=== PATIENT | male | born 1980 | race Two or more races ===

== ENCOUNTER 2021-03-18 17:27 | Inpatient (IN) | payer MEDICARE, MEDICAID ==
[~2021-03-18] VITALS: Ht 152.4 cm; Wt 57.6 kg
--- NOTE | 2021-03-18 18:52 | NUR ---
RT NOTE PT BROUGHT IN FOR DIALYSIS CATH REPLACEMENT FROM [facility]. PT IS TRACH'D VIA PORTEX 7 CUFFED AND PLACED ON [facility] VENT W GIVEN SETTINGS FROM TRANSPORT RT RAJAN. PT IS STABLE. ALARMS ARE SET AND AUDIBLE. SPARE OFELIA AND ISABEL @ [facility]. VENT IS PLUGGED INTO RED OUTLET. Addendum: 03/18/21 at 1931 by ANJANA MARRUFO RT Amended: Links added.
--- NOTE | 2021-03-18 19:05 | NUR ---
IV LINE IS ESTABLISHED, BLOOD SPECIMEN COLLECTED AND SENT TO THE LAB. THE LINE IS SALINE LOCKED.
[2021-03-18 19:17] LABS: BASOPHILS # (AUTO) 0.1 K/uL (0.0-0.2); BASOPHILS % (AUTO) 0.5 % (0.0-2.0); HEMATOCRIT 31 % (39-51); HEMOGLOBIN 10.7 g/dL (13.5-17.5); LYMPHOCYTES # (AUTO) 2.3 K/uL (0.8-4.8); LYMPHOCYTES % (AUTO) 17.3 % (20.0-44.0); MEAN CORPUSCULAR HGB CONC 34 g/dl (31.0-36.0); MEAN CORPUSCULAR VOLUME 86 fL (80-96); MONOCYTES # (AUTO) 0.4 K/uL (0.1-1.30); MONOCYTES % (AUTO) 3.3 % (2.0-12.0); NEUTROPHILS # (AUTO) 9.7 K/uL (1.8-8.9); NEUTROPHILS % (AUTO) 73.9 % (43.0-81.0); PLATELET COUNT (AUTO) 457 K/uL (150-450); RED BLOOD CELL COUNT(AUTO) 3.67 MIL/uL (4.5-6.0); WHITE BLOOD COUNT (AUTO) 13.1 K/uL (4.3-11.0)
--- NOTE | 2021-03-18 19:37 | NUR ---
MOVE SHEET SUBMITTED AND CALLED FOR TELE BED.
[2021-03-18 19:40] LABS: CALCIUM, SERUM 8.8 mg/dL (8.5-10.1); CARBON DIOXIDE 25 mmol/L (21-32); CHLORIDE 90 mmol/L (98-107); CREATININE 6.4 mg/dL (0.6-1.3); GLUCOSE 177 mg/dL (74-106); POTASSIUM 4.7 mmol/L (3.5-5.1); SODIUM SERUM 131 mmol/L (136-145)
[2021-03-18 19:45] LABS: UREA NITROGEN, BLOOD 107 mg/dL (7-18)
--- NOTE | 2021-03-18 19:45 | NUR ---
BUN 107
[2021-03-18 19:51] LABS: ALANINE AMINOTRANSFERASE 21 U/L (12-78); ALKALINE PHOSPHATASE 346 U/L (46-116); ASPARTATE AMINOTRANSFERASE 35 U/L (15-37); BILIRUBIN,DIRECT 0.1 mg/dL (0.0-0.2); BILIRUBIN,TOTAL 0.3 mg/dL (0.2-1.0); LIPASE 309 U/L (73-393); TOTAL PROTEIN, SERUM 8.8 g/dL (6.4-8.2)
--- NOTE | 2021-03-18 19:59 | NUR ---
MRSA SWAB COLLECTED AND SENT TO LAB. PATIENT'S BELONGINGS LIST DONE.
[2021-03-18] MEDS ORDERED: ONDANSETRON HCL/PF 4 MG/2 ML VIAL IVP PRN (20:00)
[2021-03-18] MEDS ORDERED: ACETAMINOPHEN 650 MG/SUPP.RECT RC PRN (20:00)
[2021-03-18] MEDS ORDERED: HYDROCODONE/APAP 10/325MG TABLET PO PRN (20:00)
--- NOTE | 2021-03-18 20:16 | NUR ---
COVID SWAB COLLECTED AND SENT TO LAB
--- NOTE | 2021-03-18 22:25 | NUR ---
REPORT GIVEN TO ISABELLA BLACKWOOD
[2021-03-18 22:53] VITALS: BP 180/98
--- NOTE | 2021-03-18 22:53 | NUR ---
PT WS TRANSFERRED TO 117 UNDER ACLS
--- NOTE | 2021-03-18 22:55 | NUR ---
TRAINING FACILITATOR NOTE RECEIVED PATIENT VIA GURNEY. TRANSFERED TO BED WITH NO INJURIES. RT CONNECTED TO VENT. PORTX #7, AC 22, TV 500 FIO2 30% AND PEEP 5. NO RESP DISTRESS. NO C/O PAIN AT THIS TIME. PATIENT IS REQUESTING BENADRYL INFORMED HIM I WILL SEE WHAT THE DOCTOR ORDERED. TELE MONITOR APPLIED, READS SINUS RHTYHM 84. IN NO APPARENT DISTRESS. IV ACCESS IN NARCISA MIDLINE PATENT AND SALINE LOCKED. BRIGHT HAND#20 PATENT AND SALINE LOCKED. AND LEFT CHEST WALL HD CATH. GTUBE IS PRESENT, NO RESIDUAL, LUSHED WITH NO RESISTANCE, CLAMPED AT THIS TIME. INTIAL PHYSICAL ASSESSMENT DONE AT THIS TIME, SKIN ASSESSMENT COMPLETED, PHOTOS TAKEN AND PLACED IN CHART. VAMP CREASER OBTAINED VITAL SIGNS AND BELONGINGS SHEET. BED IS LOW AND LOCKED, HOB ELEVATED IN SEMI FOWLERS, SIDE RIALS UP X2, CALL LIGHT WEHLIN REACH.
--- NOTE | 2021-03-19 00:16 | NUR ---
RN NOTE INFORMED DECONTAMINATOR MIKIE TRIPP DIRECTOR AMBULATORY THAT PATIENT BP IS 180/98, 160S/101. RECEIVED VERBAL ORDER FOR HYDRALAZINE 10MG IV PUSH ONE TIME. ORDER READ BACK NOTED AND CARRIED OUT. ALSO INFORMED HER THAT PATIENT IS REQUESTING BENADRYL, WILL ENTER MED RECON AND INFORM HER WHEN ENTERED FOR REVIEW.
[2021-03-19] MEDS ORDERED: hydrALAZINE HCL IV 20 MG VIAL IV ONE (00:30)
[2021-03-19] MEDS ORDERED: VIT1TABL46 GT (02:08)
[2021-03-19] MEDS ORDERED: METO-295 GT (02:08)
[2021-03-19] MEDS ORDERED: ESCI10TA GT (02:08)
[2021-03-19] MEDS ORDERED: MIDO10TA GT ×2 (02:08→08:00)
[2021-03-19] MEDS ORDERED: SEVE0.8P GT (02:08)
[2021-03-19] MEDS ORDERED: LANS30CA56 GT (02:08)
[2021-03-19] MEDS ORDERED: AMLO-213 GT (02:08)
[2021-03-19] MEDS ORDERED: LOSA50TA3 GT (02:08)
[2021-03-19] MEDS ORDERED: CLON1PAT13 TD (02:08)
[2021-03-19] MEDS ORDERED: SIME80TA15 GT (02:08)
[2021-03-19] MEDS ORDERED: HYDR100T27 GT (02:08)
[2021-03-19] MEDS ORDERED: ERYT200S16 GT (02:08)
[2021-03-19] MEDS ORDERED: ASPI-1498 GT (02:08)
[2021-03-19] MEDS ORDERED: BISA10SU11 RC (02:08)
[2021-03-19] MEDS ORDERED: IPRA3AMP22 IH (02:08)
[2021-03-19] MEDS ORDERED: INSU100I45 SQ (02:08)
[2021-03-19] MEDS ORDERED: GABA-532 GT (02:08)
[2021-03-19] MEDS ORDERED: INSU100V42 (02:08)
[2021-03-19] MEDS ORDERED: INSU100V7 SQ (02:08)
[2021-03-19] MEDS ORDERED: HEPA500039 SQ (02:08)
[2021-03-19] MEDS ORDERED: METO50TA16 GT (02:08)
[2021-03-19] MEDS ORDERED: HYDR4TAB57 GT (02:08)
[2021-03-19] MEDS ORDERED: Medication Not On Formulary EA (Ipratropium/Albuterol Sulfate (Ipratr-Albuterol 0.5-3 Mg IH SCH (02:30)
[2021-03-19] MEDS ORDERED: SIMETHICONE 80 MG TAB.CHEW GT PRN (02:30)
[2021-03-19] MEDS ORDERED: DEXTROSE 50%-WATER 50 ML DISP.SYRIN IV PRN (02:30)
[2021-03-19] MEDS ORDERED: BISACODYL SUPP (10 MG) 10 MG/SUPP.RECT SUPP.RECT RC PRN ×2 (02:30→03:30)
[2021-03-19] MEDS ORDERED: ALBUTEROL FS 2.5 MG/0.5 ML VIAL.NEB NEB PRN (03:00)
[2021-03-19] MEDS ORDERED: MIDODRINE HCL (5MG) 5 MG TABLET GT SCH (03:00)
[2021-03-19] MEDS ORDERED: HYDROMORPHONE HCL 2 MG TABLET GT PRN (03:00)
[2021-03-19] MEDS ORDERED: METOCLOPRAMIDE HCL 10 MG/10 ML UDC GT PRN (03:00)
[2021-03-19] MEDS ORDERED: IPRATROPIUM NEB FS 0.5 MG/2.5 ML AMPUL.NEB IH PRN (03:00)
[2021-03-19] MEDS: INSULIN NPH, HUMAN ISOPHANE 100 UNIT/ML VIAL SQ SCH ×2 (03:00→14:35)
[2021-03-19] MEDS ORDERED: MIDODRINE HCL (5MG) 5 MG TABLET GT PRN (03:30)
[2021-03-19 04:00] VITALS: BP 159/80
[2021-03-19] MEDS: BLOOD SUGAR DIAGNOSTIC 1 EACH STRIP IN SCH ×4 (07:03→23:05)
[2021-03-19] MEDS: INSULIN REGULAR, HUMAN 100 UNIT/ML 3 ML VIAL SQ PRN ×3 (07:04→16:53)
[2021-03-19 07:06] LABS: BASOPHILS # (AUTO) 0.1 K/uL (0.0-0.2); BASOPHILS % (AUTO) 1.1 % (0.0-2.0); EOSINOPHILS % (AUTO) 4.5 % (0.0-6.0); HEMATOCRIT 32 % (39-51); HEMOGLOBIN 10.7 g/dL (13.5-17.5); LYMPHOCYTES # (AUTO) 2.3 K/uL (0.8-4.8); LYMPHOCYTES % (AUTO) 22.4 % (20.0-44.0); MEAN CORPUSCULAR HGB CONC 34 g/dl (31.0-36.0); MEAN CORPUSCULAR VOLUME 87 fL (80-96); MONOCYTES # (AUTO) 0.6 K/uL (0.1-1.30); MONOCYTES % (AUTO) 6.2 % (2.0-12.0); NEUTROPHILS # (AUTO) 6.7 K/uL (1.8-8.9); NEUTROPHILS % (AUTO) 65.8 % (43.0-81.0); PLATELET COUNT (AUTO) 393 K/uL (150-450); RED BLOOD CELL COUNT(AUTO) 3.65 MIL/uL (4.5-6.0); WHITE BLOOD COUNT (AUTO) 10.2 K/uL (4.3-11.0)
[2021-03-19 07:41] LABS: CREATININE 6.7 mg/dL (0.6-1.3); MAGNESIUM 3.5 mg/dL (1.8-2.4); POTASSIUM 4.6 mmol/L (3.5-5.1)
--- NOTE | 2021-03-19 07:46 | NUR ---
RN CLOSING NOTE RESTING IN BED. ON VENT. NO RESP DISTRES. NO C/O MANUELA. NO DISTRESS. IV ACCESS MAINTAINED.GTUBE IS CLAMPED. ASKED MIKIE QASIM THIS MORNING IF SHE WOULD LIKE TO CONTINUE NEPRO FEEDING FROM [facility]. RECEIVED ORDER FOR NPO. BED REMAINS LOW AND LOCKED, HOB ELEVATED IN SEMI FOWLERS, SIDE RIALS UP X2, CALL LIGHT WEHLIN REACH. WILL ENDORSE TO ONCOMING SHIFT.
--- NOTE | 2021-03-19 07:59 | NUR ---
FELLER HAND NOTE PATIENT IN BED, AWAKE ALERT, WITH TRACH TO VENT SETTING ORDERED, ON TELE MONITOR SR HR 85 , ON NPO AT THIS TIME, NARCISA MID LINE IN PLACE , WILL CONT TO MONITOR
[2021-03-19] MEDS ORDERED: CHLO473M5 MM (08:00)
[2021-03-19] MEDS ORDERED: INSU100V11 SQ (08:00)
[2021-03-19] MEDS ORDERED: SILV480G TP (08:00)
[2021-03-19] MEDS ORDERED: NUT.237L67 GT (08:00)
[2021-03-19] MEDS ORDERED: GLUC1KIT IM (08:00)
[2021-03-19] MEDS ORDERED: POVI3780 TP (08:00)
[2021-03-19] MEDS ORDERED: ACET650S26 GT (08:00)
[2021-03-19] MEDS ORDERED: AMIN30LI2 GT (08:00)
[2021-03-19 08:09] LABS: PHOSPHORUS 4.4 mg/dL (2.5-4.9)
[2021-03-19] MEDS: SEVELAMER CARBONATE 800 MG POWD.PACK GT SCH ×3 (08:10→16:25)
[2021-03-19] MEDS: METOPROLOL TARTRATE 50 MG TABLET GT SCH ×2 (08:10→16:35)
[2021-03-19] MEDS: ASPIRIN EC 81 MG TABLET.DR PO SCH (08:10)
[2021-03-19] MEDS: ESCITALOPRAM OXALATE (10 MG) 10 MG TABLET GT SCH (08:11)
[2021-03-19] MEDS: AMLODIPINE BESYLATE 10 MG TABLET PO SCH (08:11)
[2021-03-19] MEDS: LOSARTAN POTASSIUM 50 MG TABLET PO SCH ×2 (08:11→21:00)
[2021-03-19] MEDS: hydrALAZINE HCL 50 MG TABLET GT SCH ×3 (08:12→16:25)
[2021-03-19] MEDS: VIT B CMPLX 3/FA/VIT C/BIOTIN 1 TAB TABLET GT SCH (08:12)
[2021-03-19] MEDS: GABAPENTIN 300 MG CAPSULE GT SCH ×2 (08:12→16:25)
[2021-03-19] MEDS ORDERED: CLONIDINE HCL 0.2MG/24H PTWK 1 EA PATCH TD SCH (09:00)
--- NOTE | 2021-03-19 09:30 | NUR ---
WOUND CARE CONSULT: REVIEWED CHART, NURSING DOCUMENTATION AND PHOTOS WHICH INDICATE MULTIPLE AREAS OF SCARRING INCLUDING BILATERAL BUTTOCKS, SACRUM, HIPS ABDOMEN AND HEELS, ALL PRESENT ON ADMISSION. RASH NOTED IN ADMISSION PHOTO OF INNER THIGHS, PERINEAL AREAS. RECOMMENDATIONS MADE FOR SKIN PROTECTION. DISCUSSED WITH NURSING STAFF. MD IN AGREEMENT WITH PLAN OF CARE. Addendum: 03/19/21 at 0937 by INES DECKER WNDNU PT TO BE PLACED ON [facility] LOW AIRLOSS BED.
[2021-03-19] MEDS: PANTOPRAZOLE 40 MG/PACK PACK GT SCH ×2 (09:42→16:25)
[2021-03-19] MEDS: ERYTHROMYCIN ETHYLSUCCINATE 200 MG/5 ML SUSPENSION GT SCH ×4 (09:42→21:36)
[2021-03-19] MEDS ORDERED: Z GUARD REMEDY 2 OZ OINT TP PRN (10:00)
[2021-03-19 10:32] VITALS: BP 161/87
[2021-03-19] MEDS: Z GUARD REMEDY 2 OZ OINT TP SCH (10:54)
[2021-03-19] MEDS ORDERED: NEPRO 1,000 ML BOTTLE GT PRN (11:00)
[2021-03-19 12:36] VITALS: BP 134/61
--- NOTE | 2021-03-19 12:37 | NUR ---
telemarketing supervisor note per dr daigle ok to start g tube feeding ok to have feeding as same as from snf , order carried out
[2021-03-19] MEDS: NEPRO 1,000 ML BOTTLE GT PRN (13:11)
--- NOTE | 2021-03-19 13:23 | NUR ---
telephone coin box collector note g tube feeding started as ordered keep hob elevated at all time
--- NOTE | 2021-03-19 14:51 | NUR ---
telecommunications administrator note rounds made ,all needs attend, turn reposition, made a bm, patrice pcleamyah dry
[2021-03-19] MEDS: PROSOURCE / PROSTAT (PYXIS) 30 ML UDC GT SCH (16:26)
[2021-03-19] MEDS: CLOTRIMAZOLE 1% 15 GM TUBE TP SCH (16:26)
[2021-03-19 16:32] VITALS: BP 120/68
--- NOTE | 2021-03-19 18:22 | NUR ---
telecommunications support note patient in bed , awake with trach to vent setting as ordered , keep clean dry , on g tube feeding as ordered, keep hob elevated at all time, on tele monitor sr , bed in lowest and locked position, will cont to monitor closely
--- NOTE | 2021-03-19 19:20 | NUR ---
RN OPENING NOTES RECEIVED PATIENT ON BED, ALERT, AWAKE, RESPIRATORY EVEN AND UNLABORED, ON MECHANICAL VENT WITH SETTINGS AC-22, TV- 500, FIO2-30%, PEEP- 5, NO SOB NOTED, NO S/S OF DISTRESS NOTED, REMAIN AFEBRILE. PT. NOTED WITH NARCISA MIDLINE PATENT, INTACT AND FLUSH WITH NS, NO INFILTRATION NOTED AT SITE. . ON G TUBE FEEDING NEPHRO @40 ML/HR X 16 HRS. HOB KEPT ELEVATED, ABDOMINAL BINDER AT ALL TIMES. BED IN LOWEST POSITION, LOCKED, BED ALARM ARMED. ALL NEEDS ATTENDED. CALL LIGHT WITH IN REACH. Addendum: 03/20/21 at 0320 by ASIF BUCK RN PT. HAS LEFT UPPER CHEST PERMA CATH BUT CURRENTLY NOT WORKING.
[2021-03-19 20:00] VITALS: BP 105/59
[2021-03-19] MEDS: INSULIN GLARGINE, 100 UNIT/ML CARTRIDGE SQ SCH (22:59)
--- NOTE | 2021-03-19 23:06 | NUR ---
RN NOTES HOLD INSULIN LANTUS 16 UNITS, BLOOD SUGAR 82 mg/dL AND AND WILL STOP TUBE FEEDING POST MID NIGHT PRIOR TO PERMA CATH REINSERTION IN AM.
--- NOTE | 2021-03-19 23:30 | NUR ---
RN NOTES GTUBE FEEDING HOLD PER MD'S ORDER, PT HAS PROCEDURE IN AM, PERMA CATH REINSERTION.
[2021-03-20 00:06] VITALS: BP 135/49
[2021-03-20] MEDS: INSULIN NPH, HUMAN ISOPHANE 100 UNIT/ML VIAL SQ SCH ×2 (03:12→15:57)
[2021-03-20 04:00] VITALS: BP_SYST 123; BP_SYST 97; BP_DIAS 52; BP_DIAS 62
[2021-03-20] MEDS: BLOOD SUGAR DIAGNOSTIC 1 EACH STRIP IN SCH ×4 (05:51→23:22)
[2021-03-20] MEDS: INSULIN REGULAR, HUMAN 100 UNIT/ML 3 ML VIAL SQ PRN ×2 (05:54→17:54)
--- NOTE | 2021-03-20 06:34 | NUR ---
RN CLOSING NOTES PATIENT REMAIN STABLE THROUGH OUT THE SHIFT, RESPIRATORY EVEN AND UNLABORED, ON MECHANICAL VENT WITH SETTINGS AC-22, TV- 500, FIO2-30%, PEEP- 5, NO SOB NOTED, NO S/S OF DISTRESS NOTED, SINUS RHYTHM ON HEAD CASHIER, HR-68. REMAIN AFEBRILE. PT. NOTED WITH NARCISA MIDLINE PATENT, INTACT AND FLUSH WITH NS, NO INFILTRATION NOTED AT SITE. . ON G TUBE FEEDING NEPHRO @40 ML/HR X 16 HRS. HOB KEPT ELEVATED, ABDOMINAL BINDER AT ALL TIMES. PT. HAS LEFT UPPER CHEST PERMA CATH BUT CURRENTLY NOT WORKING. GTUBE FEEDING TURN OFF @ MID NIGHT FOR HD CATHETER REINSERTION. BED IN LOWEST POSITION, LOCKED, BED ALARM ARMED. ALL NEEDS ATTENDED. CALL LIGHT WITH IN REACH. ENDORSED TO NEXT SHIFT
[2021-03-20 06:57] LABS: CALCIUM, SERUM 9.2 mg/dL (8.5-10.1); POTASSIUM 5.3 mmol/L (3.5-5.1)
[2021-03-20 06:58] LABS: BASOPHILS # (AUTO) 0.1 K/uL (0.0-0.2); BASOPHILS % (AUTO) 1.2 % (0.0-2.0); EOSINOPHILS % (AUTO) 4.6 % (0.0-6.0); HEMATOCRIT 29 % (39-51); HEMOGLOBIN 10.1 g/dL (13.5-17.5); LYMPHOCYTES # (AUTO) 2.9 K/uL (0.8-4.8); LYMPHOCYTES % (AUTO) 27.3 % (20.0-44.0); MEAN CORPUSCULAR HGB CONC 35 g/dl (31.0-36.0); MEAN CORPUSCULAR VOLUME 86 fL (80-96); MONOCYTES # (AUTO) 0.7 K/uL (0.1-1.30); MONOCYTES % (AUTO) 6.4 % (2.0-12.0); NEUTROPHILS # (AUTO) 6.3 K/uL (1.8-8.9); NEUTROPHILS % (AUTO) 60.5 % (43.0-81.0); PLATELET COUNT (AUTO) 361 K/uL (150-450); WHITE BLOOD COUNT (AUTO) 10.5 K/uL (4.3-11.0)
[2021-03-20 07:21] LABS: CREATININE 7.7 mg/dL (0.6-1.3)
[2021-03-20] MEDS ORDERED: ANESTHESIA TRAY IN PYXIS 1 EA TRAY MC ONE (07:41)
--- NOTE | 2021-03-20 07:45 | NUR ---
RN OPEN NOTES PATIENT RECEIVED IN BED, ALERT AND ORIENTED X1 WITH NO SIGN OF RESPIRATORY DISTRESS OR SOB AT THIS TIME BREATHING EVEN AND UNLABORED, ON MECHANICAL VENT WITH SETTINGS AC-22, TV- 500, FIO2-30%, PEEP- 5, SINUS RHYTHM ON CLOTHES IRONER, HR-66. WITH NARCISA MIDLINE PATENT, INTACT AND FLUSH WELL, NO INFILTRATION NOTED, ON G TUBE FEEDING NEPHRO @40 ML/HR X 16 HRS. HOB KEPT ELEVATED, ABDOMINAL BINDER AT ALL TIMES. PT. HAS LEFT UPPER CHEST PERMA CATH BUT CURRENTLY NOT WORKING. G TUBE FEEDING TURN OFF FOR HD CATHETER REINSERTION. BED IN LOWEST POSITION AND LOCKED, BED ALARM ON, CALL LIGHT WITHIN REACH. WILL CONTINUE TO MONITOR
[2021-03-20 08:00] VITALS: BP 126/79
--- NOTE | 2021-03-20 08:00 | NUR ---
RN NOTE PT WENT UP TO THE OR FOR LEFT UPPER CHEST PERMA CATH REINSERTION
[2021-03-20] MEDS ORDERED: FENTANYL PF 100MCG/2ML AMPUL ONE (08:14)
[2021-03-20] MEDS ORDERED: LIDOCAINE HCL/MPF 1% 30 ML VIAL IJ ONE (08:19)
[2021-03-20] MEDS ORDERED: HEPARIN SODIUM, PORCINE 1,000 UNIT/ML VIAL ONE (08:21)
[2021-03-20] MEDS: AMLODIPINE BESYLATE 10 MG TABLET PO SCH (09:00)
[2021-03-20] MEDS: METOPROLOL TARTRATE 50 MG TABLET GT SCH ×2 (09:00→16:26)
[2021-03-20] MEDS: LOSARTAN POTASSIUM 50 MG TABLET PO SCH ×2 (09:00→21:21)
[2021-03-20] MEDS: hydrALAZINE HCL 50 MG TABLET GT SCH ×3 (09:00→16:26)
[2021-03-20] MEDS: ASPIRIN EC 81 MG TABLET.DR PO SCH (09:53)
[2021-03-20] MEDS: GABAPENTIN 300 MG CAPSULE GT SCH ×2 (09:53→16:26)
[2021-03-20] MEDS: PANTOPRAZOLE 40 MG/PACK PACK GT SCH ×2 (09:53→16:25)
[2021-03-20] MEDS: ESCITALOPRAM OXALATE (10 MG) 10 MG TABLET GT SCH (09:53)
[2021-03-20] MEDS: CLOTRIMAZOLE 1% 15 GM TUBE TP SCH ×2 (09:56→16:27)
[2021-03-20] MEDS: Z GUARD REMEDY 2 OZ OINT TP SCH (09:56)
[2021-03-20] MEDS: SEVELAMER CARBONATE 800 MG POWD.PACK GT SCH ×3 (09:59→16:26)
[2021-03-20] MEDS: VIT B CMPLX 3/FA/VIT C/BIOTIN 1 TAB TABLET GT SCH (10:00)
[2021-03-20] MEDS: ERYTHROMYCIN ETHYLSUCCINATE 200 MG/5 ML SUSPENSION GT SCH ×4 (10:00→21:15)
--- NOTE | 2021-03-20 10:00 | NUR ---
RN NOTES LEFT UPPER CHEST PERMA CATH REINSERTION WENT WELL PT IS IN HEMODIALYSIS NOW
[2021-03-20] MEDS: PROSOURCE / PROSTAT (PYXIS) 30 ML UDC GT SCH ×2 (10:01→16:27)
[2021-03-20] MEDS: NEPRO 1,000 ML BOTTLE GT PRN (10:24)
--- NOTE | 2021-03-20 11:49 | NUR ---
RN NOTE PT HAS ONE EMESIS ZOFRAN PRN GIVEN WILL CONTINUE TO MONITOR
[2021-03-20 12:00] VITALS: BP 134/67
--- NOTE | 2021-03-20 13:00 | NUR ---
RN NOTE DIALYSIS DONE 3L REMOVED
--- NOTE | 2021-03-20 13:12 | NUR ---
rn notes Hold hydralazine per dialysis nurse
[2021-03-20] MEDS: ANCEF 1 GM/50 ML D5W IV SCH ×2 (15:47→23:22)
[2021-03-20 16:00] VITALS: BP 182/93
--- NOTE | 2021-03-20 18:36 | NUR ---
RN CLOSING NOTES PATIENT REMAINS IN BED, ALERT AND ORIENTED X1 WITH NO SIGN OF RESPIRATORY DISTRESS OR SOB AT THIS TIME BREATHING EVEN AND UNLABORED, ON MECHANICAL VENT WITH SETTINGS AC-22, TV- 500, FIO2-30%, PEEP- 5, SINUS RHYTHM ON TELEVISION SCHEDULE COORDINATOR, HR-72 WITH NARCISA MIDLINE PATENT, INTACT AND FLUSH WELL, NO INFILTRATION NOTED, ON G TUBE FEEDING NEPHRO @40 ML/HR X 16 HRS. HOB KEPT ELEVATED, PT HAS LEFT UPPER CHEST PERMA CATH IN PLACE DIALYSIS DONE WITH 3 LITERS REMOVED, BED IN LOWEST POSITION AND LOCKED, BED ALARM ON, CALL LIGHT WITHIN REACH. WILL ENDORSE TO DIORAMA MODEL MAKERPLASTER BLOCK LAYER
[2021-03-20 20:00] VITALS: BP 137/39
[2021-03-20] MEDS: INSULIN GLARGINE, 100 UNIT/ML CARTRIDGE SQ SCH (23:21)
[2021-03-21] VITALS: BP 147/35
[2021-03-21] MEDS: INSULIN NPH, HUMAN ISOPHANE 100 UNIT/ML VIAL SQ SCH ×2 (03:00→15:08)
--- NOTE | 2021-03-21 03:00 | NUR ---
RN NOTES HOLD NOVOLIN N INSULIN FOR BLOOD SUGAR 69mg/dL
[2021-03-21 04:00] VITALS: BP 153/39
--- NOTE | 2021-03-21 04:25 | NUR ---
RN OPENING NOTES RECEIVED PATIENT ON BED, ALERT, AWAKE, RESPIRATORY EVEN AND UNLABORED, ON MECHANICAL VENT WITH SETTINGS AC-22, TV- 500, FIO2-30%, PEEP- 5, NO SOB NOTED, NO S/S OF DISTRESS NOTED, REMAIN AFEBRILE. PT. NOTED WITH NARCISA MIDLINE PATENT, INTACT AND FLUSH WITH NS, NO INFILTRATION NOTED AT SITE. . ON G TUBE FEEDING NEPHRO @40 ML/HR X 16 HRS. HOB KEPT ELEVATED, ABDOMINAL BINDER AT ALL TIMES. S/P PERMA CATH INSERTION, DENIES PAIN. WITH MINIMAL BLEEDING NOTED AT THE SITE. BED IN LOWEST POSITION, LOCKED, BED ALARM ARMED. ALL NEEDS ATTENDED. CALL LIGHT WITH IN REACH.
[2021-03-21] MEDS: BLOOD SUGAR DIAGNOSTIC 1 EACH STRIP IN SCH ×4 (06:18→23:07)
[2021-03-21 06:34] LABS: BASOPHILS # (AUTO) 0.1 K/uL (0.0-0.2); BASOPHILS % (AUTO) 0.5 % (0.0-2.0); EOSINOPHILS % (AUTO) 1.7 % (0.0-6.0); HEMATOCRIT 30 % (39-51); HEMOGLOBIN 10.4 g/dL (13.5-17.5); LYMPHOCYTES % (AUTO) 10.2 % (20.0-44.0); MEAN CORPUSCULAR HGB CONC 35 g/dl (31.0-36.0); MEAN CORPUSCULAR VOLUME 86 fL (80-96); MONOCYTES # (AUTO) 0.7 K/uL (0.1-1.30); MONOCYTES % (AUTO) 3.6 % (2.0-12.0); NEUTROPHILS # (AUTO) 16.9 K/uL (1.8-8.9); PLATELET COUNT (AUTO) 331 K/uL (150-450); RED BLOOD CELL COUNT(AUTO) 3.46 MIL/uL (4.5-6.0); WHITE BLOOD COUNT (AUTO) 20.1 K/uL (4.3-11.0)
--- NOTE | 2021-03-21 07:01 | NUR ---
RN OPENING NOTES NO SIGNIFICANT CHANGES THROUGH OUT THE SHIFT. RESPIRATORY EVEN AND UNLABORED, ON MECHANICAL VENT WITH SETTINGS AC-22, TV- 500, FIO2-30%, PEEP- 5, NO SOB NOTED, NO S/S OF DISTRESS NOTED, REMAIN AFEBRILE. PT. NOTED WITH NARCISA MIDLINE PATENT, INTACT AND FLUSH WITH NS, NO INFILTRATION NOTED AT SITE. . ON G TUBE FEEDING NEPHRO @40 ML/HR X 16 HRS. HOB KEPT ELEVATED, ABDOMINAL BINDER AT ALL TIMES. S/P PERMA CATH INSERTION, DENIES PAIN. WITH MINIMAL BLEEDING NOTED AT THE SITE. BED IN LOWEST POSITION, LOCKED, BED ALARM ARMED. ALL NEEDS ATTENDED. CALL LIGHT WITH IN REACH. ENDORSED TO NEXT SHIFT
--- NOTE | 2021-03-21 07:41 | NUR ---
RN OPEN NOTES PATIENT RECEIVED IN BED, ALERT AND ORIENTED X1 WITH NO SIGN OF RESPIRATORY DISTRESS OR SOB AT THIS TIME BREATHING EVEN AND UNLABORED, ON MECHANICAL VENT WITH SETTINGS AC-22, TV- 500, FIO2-30%, PEEP- 5, SINUS RHYTHM ON INTERIOR BLOCK WIRER, HR-65 WITH NARCISA MIDLINE PATENT, INTACT AND FLUSH WELL, NO INFILTRATION NOTED, ON G TUBE FEEDING NEPHRO @40 ML/HR X 16 HRS. HOB KEPT ELEVATED, PT HAS LEFT UPPER CHEST PERMA CATH IN PLACE WITH A LITTLE BIT OF BLOOD NOTED, WILL MONITOR CLOSELY, BED IN LOWEST POSITION AND LOCKED, BED ALARM ON, CALL LIGHT WITHIN REACH. WILL CONTINUE TO MONITOR
[2021-03-21 08:00] VITALS: BP 132/32
[2021-03-21 08:07] LABS: CALCIUM, SERUM 9.6 mg/dL (8.5-10.1); CREATININE 4.5 mg/dL (0.6-1.3); POTASSIUM 4.7 mmol/L (3.5-5.1)
[2021-03-21] MEDS: CLOTRIMAZOLE 1% 15 GM TUBE TP SCH ×2 (09:11→16:58)
[2021-03-21] MEDS: Z GUARD REMEDY 2 OZ OINT TP SCH (09:12)
[2021-03-21] MEDS: ERYTHROMYCIN ETHYLSUCCINATE 200 MG/5 ML SUSPENSION GT SCH ×4 (09:16→21:44)
[2021-03-21] MEDS: ASPIRIN EC 81 MG TABLET.DR PO SCH (09:16)
[2021-03-21] MEDS: VIT B CMPLX 3/FA/VIT C/BIOTIN 1 TAB TABLET GT SCH (09:17)
[2021-03-21] MEDS: SEVELAMER CARBONATE 800 MG POWD.PACK GT SCH ×3 (09:17→16:57)
[2021-03-21] MEDS: GABAPENTIN 300 MG CAPSULE GT SCH ×2 (09:17→16:57)
[2021-03-21] MEDS: METOPROLOL TARTRATE 50 MG TABLET GT SCH ×2 (09:18→17:00)
[2021-03-21] MEDS: ESCITALOPRAM OXALATE (10 MG) 10 MG TABLET GT SCH (09:18)
[2021-03-21] MEDS: hydrALAZINE HCL 50 MG TABLET GT SCH ×3 (09:18→17:00)
[2021-03-21] MEDS: LOSARTAN POTASSIUM 50 MG TABLET PO SCH ×2 (09:18→21:00)
[2021-03-21] MEDS: PANTOPRAZOLE 40 MG/PACK PACK GT SCH ×2 (09:19→16:57)
[2021-03-21] MEDS: AMLODIPINE BESYLATE 10 MG TABLET PO SCH (09:19)
[2021-03-21] MEDS: PROSOURCE / PROSTAT (PYXIS) 30 ML UDC GT SCH ×2 (09:19→16:58)
[2021-03-21] MEDS: NEPRO 1,000 ML BOTTLE GT PRN (10:56)
[2021-03-21 12:00] VITALS: BP 118/67
[2021-03-21] MEDS: INSULIN REGULAR, HUMAN 100 UNIT/ML 3 ML VIAL SQ PRN ×2 (12:00→23:08)
[2021-03-21 16:00] VITALS: BP 102/47
--- NOTE | 2021-03-21 17:15 | NUR ---
RN NOTE PER DOCTOR ANDONIAN OK TO HOLD HYDRALAZINE AND METOPROLOL BP 100/50
--- NOTE | 2021-03-21 18:43 | NUR ---
RN CLOSING NOTES PATIENT REMAINS IN BED, ALERT AND ORIENTED X1 WITH NO SIGN OF RESPIRATORY DISTRESS OR SOB AT THIS TIME BREATHING EVEN AND UNLABORED, ON MECHANICAL VENT WITH SETTINGS AC-22, TV- 500, FIO2-30%, PEEP- 5, SINUS RHYTHM ON COMPOSITION ROLL MAKER AND CUTTER, HR-72 WITH NARCISA MIDLINE PATENT, INTACT AND FLUSH WELL, NO INFILTRATION NOTED, ON G TUBE FEEDING NEPHRO @40 ML/HR X 16 HRS. HOB KEPT ELEVATED, PT HAS LEFT UPPER CHEST PERMA CATH IN PLACE DRESSING CHANGED, ALL NEEDS MET PT KEPT CLEAN AND COMFORTABLE, WILL MONITOR CLOSELY, BED IN LOWEST POSITION AND LOCKED, BED ALARM ON, CALL LIGHT WITHIN REACH. WILL ENDORSE TO TRAILER ASSEMBLERDEVELOPER PROGRAMMER ANALYST
--- NOTE | 2021-03-21 19:30 | NUR ---
CONTINUITY OF CARE Patient in bed, non verbal, eyes close. On Mechanical vent. Sinus Rhythm in the Tele monitor. NARCISA midline intact. Gtube feeding infusing at 40ml/hr. HD cath in left upper chest, noted dressing with fresh blood, re enforced. Dialysis tx started with RN at bedside. Will cont to provide care.
[2021-03-21 20:37] VITALS: BP 106/62
[2021-03-21] MEDS: MUPIROCIN OINT 2% 22 GM TUBE NS SCH (21:42)
--- NOTE | 2021-03-21 21:46 | NUR ---
LOSARTAN POTASSIUM NOT GIVEN BP 108/57 Dialysis tx in progress. Losartan Potassium non administered, BP trending low.
--- NOTE | 2021-03-21 22:40 | NUR ---
HD Dialysis tx done with 1.5L output per data warehouse specialist.
[2021-03-21] MEDS: INSULIN GLARGINE, 100 UNIT/ML CARTRIDGE SQ SCH (23:09)
--- NOTE | 2021-03-21 23:10 | NUR ---
SCHEDULED INSULIN Insulin Lantus 16 units given co-signed by ISABELLA Leon.
[2021-03-22 00:38] VITALS: BP 166/76
[2021-03-22] MEDS: INSULIN NPH, HUMAN ISOPHANE 100 UNIT/ML VIAL SQ SCH ×2 (03:14→15:03)
--- NOTE | 2021-03-22 03:15 | NUR ---
INSULIN Scheduled dose insulin Novolin 14 units given, co-sighed by ISABELLA Leon.
[2021-03-22 05:24] VITALS: BP 189/95
--- NOTE | 2021-03-22 06:23 | NUR ---
END OF SHIFT REPORT Patient in bed, speech unclear. Trach intact, on Mechanical vent. Sinus rhythm in the Tele monitor HR 70's. NARCISA midline patent and intact. Left upper chest HD cath, dressing in place. Gtube feeding turned off, as per ordered to run 40ml/hr x16 hours, ON 11am, OFF 3am. BP elevated this morning 189/95. Notified Dr. Dias, awaiting orders. Will endorse to oncoming RN.
[2021-03-22] MEDS: BLOOD SUGAR DIAGNOSTIC 1 EACH STRIP IN SCH ×3 (06:29→17:25)
[2021-03-22] MEDS: INSULIN REGULAR, HUMAN 100 UNIT/ML 3 ML VIAL SQ PRN ×3 (06:32→17:25)
[2021-03-22 06:58] LABS: BASOPHILS % (AUTO) 0.3 % (0.0-2.0); EOSINOPHILS % (AUTO) 3.1 % (0.0-6.0); HEMATOCRIT 29 % (39-51); LYMPHOCYTES # (AUTO) 1.3 K/uL (0.8-4.8); LYMPHOCYTES % (AUTO) 8.9 % (20.0-44.0); MEAN CORPUSCULAR HGB CONC 35 g/dl (31.0-36.0); MEAN CORPUSCULAR VOLUME 86 fL (80-96); MONOCYTES # (AUTO) 0.7 K/uL (0.1-1.30); MONOCYTES % (AUTO) 4.5 % (2.0-12.0); NEUTROPHILS # (AUTO) 12.5 K/uL (1.8-8.9); NEUTROPHILS % (AUTO) 83.2 % (43.0-81.0); PLATELET COUNT (AUTO) 282 K/uL (150-450); RED BLOOD CELL COUNT(AUTO) 3.35 MIL/uL (4.5-6.0)
[2021-03-22 07:02] LABS: CALCIUM, SERUM 9.6 mg/dL (8.5-10.1); POTASSIUM 3.5 mmol/L (3.5-5.1)
--- NOTE | 2021-03-22 07:20 | NUR ---
RN NOTE PATIENT OBSERVED IN BED ON TRACHEOSTOMY WITH MECHANICAL VENTILATOR TOLERATING WELL, PATIENT ON TELE MONITOR SR AT THIS TIME, ON GT FEEDING INFUSING WELL NO RESIDUAL NOTED TOLERATED WELL, WITH RIGHT UPPER ARM MIDLINE PATENT FLUSHING WELL, PATIENT ALSOWITL LEFT UPPER CHEST HD CATH NO BLEEDING NOTED, SAFETY MEASURE OBSERVED, BED WHEELS LOCK, CALL LIGHT WITHIN REACH, WILL CONTINUE TO MONITOR.
[2021-03-22 08:00] VITALS: BP 149/88
[2021-03-22] MEDS: SEVELAMER CARBONATE 800 MG POWD.PACK GT SCH ×3 (08:04→17:40)
[2021-03-22] MEDS: VIT B CMPLX 3/FA/VIT C/BIOTIN 1 TAB TABLET GT SCH (08:05)
[2021-03-22] MEDS: Z GUARD REMEDY 2 OZ OINT TP SCH (08:06)
[2021-03-22] MEDS: GABAPENTIN 300 MG CAPSULE GT SCH ×2 (08:06→17:40)
[2021-03-22] MEDS: hydrALAZINE HCL 50 MG TABLET GT SCH ×3 (08:06→17:41)
[2021-03-22] MEDS: LOSARTAN POTASSIUM 50 MG TABLET PO SCH (08:06)
[2021-03-22] MEDS: ESCITALOPRAM OXALATE (10 MG) 10 MG TABLET GT SCH (08:06)
[2021-03-22] MEDS: PANTOPRAZOLE 40 MG/PACK PACK GT SCH ×2 (08:06→17:40)
[2021-03-22] MEDS: ASPIRIN EC 81 MG TABLET.DR PO SCH (08:07)
[2021-03-22] MEDS: PROSOURCE / PROSTAT (PYXIS) 30 ML UDC GT SCH ×2 (08:07→17:40)
[2021-03-22] MEDS: MUPIROCIN OINT 2% 22 GM TUBE NS SCH (08:07)
[2021-03-22] MEDS: AMLODIPINE BESYLATE 10 MG TABLET PO SCH (08:07)
[2021-03-22] MEDS: METOPROLOL TARTRATE 50 MG TABLET GT SCH ×2 (08:07→17:41)
[2021-03-22] MEDS: CLOTRIMAZOLE 1% 15 GM TUBE TP SCH ×2 (08:08→17:42)
[2021-03-22] MEDS: ERYTHROMYCIN ETHYLSUCCINATE 200 MG/5 ML SUSPENSION GT SCH ×3 (08:52→17:44)
--- NOTE | 2021-03-22 09:00 | NUR ---
RN NOTE PATIENT SEEN BY DR. VIDAL, NOTIFIED MD REGARDING NOC SHIFT ELEVATED BP OF 186/88, PATIENT RECEIVED FRANCIS OF BP MEDS AT 0800 BP OF 130/80, NO PRN BP MEDICATION ORDERED, PER MD PATIENT IS FOR DISCHARGE.
[2021-03-22 12:00] VITALS: BP 125/77
[2021-03-22 16:00] VITALS: BP 122/76
--- NOTE | 2021-03-22 16:53 | NUR ---
RN NOTE REPORT GIVEN TO ISABELLA BANKS OF [facility]
[2021-03-22 17:41] VITALS: BP 127/81
--- NOTE | 2021-03-22 18:35 | NUR ---
RN NOTE PATIENT OBSERVED IN BED ON TRACHEOSTOMY WITH MECHANICAL VENTILATOR TOLERATING WELL, PATIENT ON TELE MONITOR SR AT THIS TIME, ON GT FEEDING INFUSING WELL NO RESIDUAL NOTED TOLERATED WELL, WITH RIGHT UPPER ARM MIDLINE PATENT FLUSHING WELL, PATIENT ALSO WITH LEFT UPPER CHEST HD CATH NO BLEEDING NOTED, SAFETY MEASURE OBSERVED, BED WHEELS LOCK, CALL LIGHT WITHIN REACH, FOR DISCHARGE, WILL ENDORSE TO NOC SHIFT.
== END 2021-03-22 20:28 | DRG 698 ==
LOC: ER 17:37 → TELE1 21:44
PROVIDERS: ADMIT Nurse Practitioner Acute Care; ATTEND Family Medicine
PROC: 5A1955Z Respiratory Ventilation, Greater than 96 Consecutive Hours (ICD-10-PCS; principal; 2021-03-18)
PROC: 05H933Z Insertion of Infusion Device into Right Brachial Vein, Percutaneous Approach (ICD-10-PCS; 2021-03-18)
PROC: 5A1D70Z Performance of Urinary Filtration, Intermittent, Less than 6 Hours Per Day (ICD-10-PCS; 2021-03-20)
PROC: 0J2SXYZ Change Other Device in Head and Neck Subcutaneous Tissue and Fascia, External Approach (ICD-10-PCS; 2021-03-20)
DX: T82.41XA Breakdown (mechanical) of vascular dialysis catheter, initial encounter (principal); N18.6 End stage renal disease; R53.2 Functional quadriplegia; Z99.11 Dependence on respirator [ventilator] status; I12.0 Hypertensive chronic kidney disease with stage 5 chronic kidney disease or end stage renal disease; G93.1 Anoxic brain damage, not elsewhere classified; J96.10 Chronic respiratory failure, unspecified whether with hypoxia or hypercapnia; E44.0 Moderate protein-calorie malnutrition; D68.59 Other primary thrombophilia; J98.11 Atelectasis; Y71.2 Prosthetic and other implants, materials and accessory cardiovascular devices associated with adverse incidents; Z99.2 Dependence on renal dialysis; R13.10 Dysphagia, unspecified; G40.909 Epilepsy, unspecified, not intractable, without status epilepticus; E11.43 Type 2 diabetes mellitus with diabetic autonomic (poly)neuropathy; E11.22 Type 2 diabetes mellitus with diabetic chronic kidney disease; Z20.822 Contact with and (suspected) exposure to COVID-19; D63.8 Anemia in other chronic diseases classified elsewhere; Z74.01 Bed confinement status; Z93.1 Gastrostomy status; Z93.0 Tracheostomy status; Z90.49 Acquired absence of other specified parts of digestive tract; Z89.519 Acquired absence of unspecified leg below knee; H49.00 Third [oculomotor] nerve palsy, unspecified eye; Z86.14 Personal history of Methicillin resistant Staphylococcus aureus infection; Z83.3 Family history of diabetes mellitus; Z88.8 Allergy status to other drugs, medicaments and biological substances; K31.84 Gastroparesis; Z86.74 Personal history of sudden cardiac arrest; Z79.4 Long term (current) use of insulin
CPT/HCPCS: 31720; 36415; 71045-TC; 80048-TC; 80076-TC; 82962-TC; 83690-TC; 83735-TC; 84100-TC; 84484-TC; 85025-TC; 86706; 87040-TC; 87081-TC; 87340; 90935-TC; 94002-TC; 94003-TC; 94760-TC; 94762-TC; 94799-TC; 99082-TC; A6403; C1750; C1757; C1769; C1894; G0378; J0360; J0690; J1644; J1815; J2405; J2704; J3010; J3490; J7030; J7060; U0003